=== PATIENT | female | born 2000 | race Caucasian/White ===

== ENCOUNTER 2023-12-31 02:50 | Emergency (ER) | payer OTHER ==
[~2023-12-31] VITALS: Ht 165.1 cm; Wt 55.0 kg
[2023-12-31] MEDS: ACETAMINOPHEN 1000MG/100ML 100 ML IV ONE (03:30)
[2023-12-31] MEDS: METOCLOPRAMIDE HCL 10MG/2ML VIAL IV ONE (04:18)
[2023-12-31] MEDS: DIPHENHYDRAMINE 50MG/ML VIAL IV ONE (04:19)
[2023-12-31] MEDS: KETOROLAC 15MG/ML VIAL IV ONE (04:19)
[2023-12-31 04:24] LABS: BASOPHILS % 1.3 % (0.0-2.0); DIFFERENTIAL COMMENT 0; EOSINOPHILS % 0.3 % (0.0-5.0); HEMATOCRIT. 34.4 % (36.0-48.0); HEMOGLOBIN. 11.8 g/dL (12.0-16.0); LYMPHOCYTES % 18.8 % (20.0-50.0); MEAN CORPUSCULAR HEMOGLOBIN 27.3 pg (28.0-32.0); MEAN CORPUSCULAR HGB CONC 34.2 g/dL (31.0-37.0); MEAN CORPUSCULAR VOLUME 79.9 fL (81.0-99.0); MEAN PLATELET VOLUME 9.1 fl (7.4-10.4); MONOCYTES % 5.3 % (2.0-8.0); NEUTROPHILS % 74.3 % (40.0-76.0); PLATELET 182 x1000/uL (130-400); RED BLOOD CELL COUNT 4.31 mill/uL (4.2-5.4); RED CELL DISTRIBUTION WIDTH 13.6 % (11.6-14.6); WHITE BLOOD COUNT 9.3 x1000/uL (4.5-11.0)
[2023-12-31 04:36] LABS: CHLORIDE 106 mEq/L (98-107); POTASSIUM 3.7 mEq/L (3.5-5.1); SODIUM 139 mEq/L (136-145)
[2023-12-31 04:37] LABS: CARBON DIOXIDE 25 mEq/L (21-32)
[2023-12-31 04:38] LABS: CALCIUM 8.9 mg/dL (8.7-10.4)
[2023-12-31 04:42] LABS: CREATININE 0.9 mg/dL (0.6-1.0); GLUCOSE 106 mg/dL (70-105)
[2023-12-31 04:43] LABS: UREA NITROGEN BLOOD 15 mg/dL (9-23)
[2023-12-31 04:44] LABS: ALANINE AMINOTRANSFERASE 12 IU/L (10-49); ASPARTATE AMINOTRANSFERASE 21 IU/L (<34)
[2023-12-31 04:45] LABS: BILIRUBIN TOTAL 0.3 mg/dL (0.1-1.0); PROTEIN TOTAL 6.9 g/dL (6.0-8.3)
[2023-12-31 04:46] LABS: HCG SCREEN NEGATIVE
[2023-12-31] MEDS: SODIUM CHLORIDE 0.9% 1,000 ML IV ONE (06:06)
[2023-12-31 09:57] VITALS: BP 122/85; PULSE 106; RESP 20; TEMP 98.5
== END 2023-12-31 09:58 | disposition short-term general hospital (02) ==
LOC: ER 03:15
DX: G43.909 Migraine, unspecified, not intractable, without status migrainosus (principal); Z20.822 Contact with and (suspected) exposure to COVID-19
CPT/HCPCS: 80053; 84703; 85025; 36415; 96361; 96374; 96375; 99285; 87426; J1200; J1885; J2765; J7030; Z7610 ×4; J0131

== ENCOUNTER 2024-01-04 03:06 | Emergency (ER) | payer MEDICAID, OTHER ==
[~2024-01-04] VITALS: Ht 157.5 cm; Wt 68.0 kg
[2024-01-04 03:14] VITALS: O2SAT 98
[2024-01-04 04:09] LABS: BASOPHILS % 0.7 % (0.0-2.0); HEMATOCRIT. 38.7 % (36.0-48.0); HEMOGLOBIN. 13.1 g/dL (12.0-16.0); LYMPHOCYTES % 23.9 % (20.0-50.0); MEAN CORPUSCULAR HEMOGLOBIN 27.9 pg (28.0-32.0); MEAN CORPUSCULAR HGB CONC 33.9 g/dL (31.0-37.0); MEAN CORPUSCULAR VOLUME 82.2 fL (81.0-99.0); MEAN PLATELET VOLUME 9.1 fl (7.4-10.4); MONOCYTES % 4.7 % (2.0-8.0); NEUTROPHILS % 68.7 % (40.0-76.0); PLATELET 206 x1000/uL (130-400); RED BLOOD CELL COUNT 4.71 mill/uL (4.2-5.4); RED CELL DISTRIBUTION WIDTH 13.9 % (11.6-14.6); WHITE BLOOD COUNT 11.6 x1000/uL (4.5-11.0)
[2024-01-04 04:15] LABS: CHLORIDE 107 mEq/L (98-107); POTASSIUM 4.1 mEq/L (3.5-5.1); SODIUM 141 mEq/L (136-145)
[2024-01-04 04:16] LABS: CALCIUM 8.9 mg/dL (8.7-10.4); CARBON DIOXIDE 27 mEq/L (21-32)
[2024-01-04] MEDS: METOCLOPRAMIDE HCL 10MG/2ML VIAL IV ONE (04:19)
[2024-01-04] MEDS: DIPHENHYDRAMINE 50MG/ML VIAL IV ONE (04:19)
[2024-01-04] MEDS: ACETAMINOPHEN 1000MG/100ML 100 ML IV ONE (04:19)
[2024-01-04 04:20] LABS: CREATININE 0.9 mg/dL (0.6-1.0)
[2024-01-04 04:21] LABS: GLUCOSE 109 mg/dL (70-105); UREA NITROGEN BLOOD 14 mg/dL (9-23)
[2024-01-04 04:22] LABS: ALANINE AMINOTRANSFERASE 17 IU/L (10-49)
[2024-01-04 04:23] LABS: ASPARTATE AMINOTRANSFERASE 17 IU/L (<34); BILIRUBIN TOTAL 0.3 mg/dL (0.1-1.0); PROTEIN TOTAL 6.8 g/dL (6.0-8.3)
[2024-01-04 04:35] LABS: HCG SCREEN NEGATIVE
[2024-01-04] MEDS: SODIUM CHLORIDE 0.9% 1,000 ML IV ONE (06:59)
[2024-01-04] MEDS: KETOROLAC 30MG/ML VIAL IV ONE (07:00)
[2024-01-04 11:14] VITALS: BP 103/62; PULSE 102; RESP 14; TEMP 98.6
== END 2024-01-04 11:30 | disposition short-term general hospital (02) ==
LOC: ER 03:06 → CANBEDREQ 11:18 → ER 11:30
DX: G43.909 Migraine, unspecified, not intractable, without status migrainosus (principal); Z20.822 Contact with and (suspected) exposure to COVID-19
CPT/HCPCS: 80053; 84703; 85025; 36415; 96361; 96365; 96375; 99285; 87426; J1200; J1885; J2765; J7030; Z7610; J0131